=== PATIENT | female | born 1950 | race Hispanic/Latino ===

== ENCOUNTER 2018-06-03 08:52 | Emergency (ER) | payer MEDICARE, OTHER ==
[2018-06-03 09:00] VITALS: BMI 28.3
--- NOTE | 2018-06-03 10:03 | RAD ---
Date of service: 06/03/2018 PROCEDURE: Right Foot Radiographs. HISTORY: injury, focus great toe and metatarsal COMPARISON: None. FINDINGS: BONES: No acute fracture or destructive bony lesion identified. JOINTS: Significant joint space narrowing seen at the 1st metatarsophalangeal joint with articular cortical sclerosis and limited osteophyte development compatible degenerative joint disease. Lesser similar changes are present at the 2nd through 5th interphalangeal joints diffusely. Limited degenerative pattern is also seen at the mid and hindfoot articulations diffusely. SOFT TISSUES: Normal. OTHER FINDINGS: None. IMPRESSION: No acute fracture, subluxation or dislocation identified. Degenerative joint changes are seen as discussed above but seen worst at the 1st metatarsophalangeal joint. No destructive bony lesion appreciable.
--- NOTE | 2018-06-03 10:32 | ED PDOC ---
Arrival/HPI - General Chief Complaint: Lower Extremity Problem/Injury Time Seen by Provider: 06/03/18 09:17 Historian: Patient - History of Present Illness Narrative History of Present Illness (Text): 06/03/18 09:10 68 F with no significant PMHx, who presents with cc of right foot pain and swelling status post falling yesterday morning down about 1-2 stairs. Patient reports she was going down the stairs to throw out the garbage when she hurt her foot, notes she thinks her foot went under her but is not sure. Patient states she did not think it was that bad, so she went to work yesterday but sx worsened throughout the day, took cab home from work. Patient said she noticed her foot was swelling and discolored, so she iced the foot yesterday, and took extra strength Tylenol at 07:00 this morning. Patient denies any other complaints. PMD: Dr. Vidal Time/Duration: 24 hours (yesterday morning ) Symptom Onset: Sudden Symptom Course: Unchanged Context: Walking (Patient notes she was walking down stairs at home, fell on either last 1-2 stairs) Past Medical History - Provider Review Nursing Documentation Reviewed: Yes - Infectious Disease Hx of Infectious Diseases: None - Reproductive Menopause: Yes Family/Social History - Physician Review Nursing Documentation Reviewed: Yes Family/Social History: No Known Family HX Allergies/Home Meds Allergies/Adverse Reactions: Allergies No Known Allergies Allergy (Verified 06/03/18 09:05) Review of Systems - Physician Review All systems were reviewed & negative as marked: Yes (All other systems negative except that noted in the HPI.) Physical Exam - Physical Exam Narrative Physical Exam (Text): PE: Gen: VS reviewed, alert, well developed, well nourished, nontoxic, mild distress Eye: EOMI, PERRL Neck: no JVD, supple, no adenopathy CV: regular rate, regular rhythm, no rubs,no murmur, S1, S2 Pulm: no distress, clear to auscultation, no wheeze, no rhonchi, breath sounds equal, no rales Abd: soft, nontender, no guarding, no rebound, no rigidity Ext: Swelling and bruising of left foot. Bruising extends to part of medial arch. Tenderness of right first metatarsal area. Skin: good color, no rash, no cyanosis Psych: responds appropriately to questions, normal affect Neuro: oriented x3, CN2-12 intact grossly, motor intact, sensation intact Vital Signs Reviewed: Yes Vital Signs Temp Pulse Resp BP Pulse Ox 06/03/18 08:59 98 F 86 18 155/90 H 99 Temperature: Afebrile Blood Pressure: Hypertensive (at 155/90) Pulse: Regular Respiratory Rate: Normal Appearance: Positive for: Well-Appearing, Non-Toxic Pain Distress: Mild Mental Status: Positive for: Alert and Oriented X 3 Medical Decision Making ED Course and Treatment: 06/03/18 09:10 Impression: 68 F presents to the Emergency department status post falling yesterday morning down about 1-2 stairs. Differential Diagnosis included but are not limited to: Plan: --X-Ray of right foot, 3 views -- Reassess and disposition Progress Notes: 06/03/18 11:40 splint applied by podiatry resident dr. odell, checked by myself after and neurovascular intact. patient will be provided crutches and surgical shoe. - RAD Interpretation Narrative RAD Interpretations (Text): 06/03/18 X-Ray of right foot reviewed by radiologist. I disagree with the radiology report. Fracture of first distal proximal bone. Discussed case with Podiatry resident, who will come evaluate the patient. Radiology reading below: X-ray of right foot reviewed by radiologist, shows: Dictator : Keron Schreiber MD Report Date : 06/03/2018 09:59:26 FINDINGS: BONES: No acute fracture or destructive bony lesion identified. JOINTS: Significant joint space narrowing seen at the 1st metatarsophalangeal joint with articular cortical sclerosis and limited osteophyte development compatible degenerative joint disease. Lesser similar changes are present at the 2nd through 5th interphalangeal joints diffusely. Limited degenerative pattern is also seen at the mid and hindfoot articulations diffusely. SOFT TISSUES: Normal. OTHER FINDINGS: None. IMPRESSION: No acute fracture, subluxation or dislocation identified. Degenerative joint changes are seen as discussed above but seen worst at the 1st metatarsophalangeal joint. No destructive bony lesion appreciable. Radiology Orders: 06/03/18 09:17 FOOT RIGHT 3 VIEWS ROUTINE [RAD] Stat Small Parts Assembler: Radiologist - Scribe Statement The provider has reviewed the documentation as recorded by the Scribe Glenna Durham All medical record entries made by the Scribe were at my direction and personally dictated by me. I have reviewed the chart and agree that the record accurately reflects my personal performance of the history, physical exam, medical decision making, and the department course for this patient. I have also personally directed, reviewed, and agree with the discharge instructions and disposition. Disposition/Present on Arrival - Present on Arrival Any Indicators Present on Arrival: No History of DVT/PE: No History of Uncontrolled Diabetes: No Urinary Catheter: No History of Decub. Ulcer: No History Surgical Site Infection Following: None - Disposition Have Diagnosis and Disposition been Completed?: Yes Diagnosis: Fractured tarsal bone Disposition: HOME/ ROUTINE Disposition Time: 11:41 Patient Plan: Discharge Condition: STABLE Additional Instructions: FLORIN ANN, thank you for letting us take care of you today. Your provider was Dr. Iam Roy and you were treated for tarsal fracture. The emergency medical care you received today was directed at your acute symptoms. If you were prescribed any medication, please fill it and take as directed. It may take several days for your symptoms to resolve. Return to the Emergency Department if your symptoms worsen, do not improve, or if you have any other problems. Please contact your doctor or call one of the physicians/clinics you have been referred to that are listed on the Patient Visit Information form that is included in your discharge packet. Bring any paperwork you were given at discharge with you along with any medications you are taking to your follow up visit. Our treatment cannot replace ongoing medical care by a primary care provider outside of the emergency department. Thank you for allowing the [facility] team to be part of your care today. If you had an X-Ray or CT scan: A Radiologist will review the ED reading if any change in treatment is needed we will contact you. If you had a blood, urine, or wound culture: It will take several days for the results, if any change in treatment is needed we will contact you. If you had an STI test: It will take 48 hours for the results. Please call after 1 week if you have not heard back. Prescriptions: Ibuprofen [Motrin Tab] 600 mg PO QID #42 tab Referrals: Sharon Calvert DPM [Staff Provider] - Follow up with primary Forms: [employer] (Latvian), WORK NOTE
--- NOTE | 2018-06-03 11:09 | CP.PCM.CON ---
History of Present Illness - History of Present Illness History of Present Illness: Podiatry consult note for Dr. Calvert, 68 yo female seen in the ED with pmhx of hypothyroidism for pain and swelling to the right foot. Patient states she was going down the stairs yesterday and fell down two stairs. Patient states she continued with her daily activities, because the pain was not so bad. Patient states the pain had gotten worse throughout the day and swelling and black/blue increased. Patient states she has been icing and elevating her lower extremity. Is taking extra strength tylenol regularly. Denies any other complains/pedal complains/f/n/v/sob. Pshx: none Allergies: NKFDA Social history: denies smoking or drinking alcohol. Past Patient History - Infectious Disease Hx of Infectious Diseases: None Meds Allergies/Adverse Reactions: Allergies Allergy/AdvReac Type Severity Reaction Status Date / Time No Known Allergies Allergy Verified 06/03/18 09:05 Physical Exam - Constitutional Appears: Well, Non-toxic, No Acute Distress - Head Exam Head Exam: ATRAUMATIC, NORMOCEPHALIC - Extremities Exam Additional comments: Right lower extremity exam: Vascular: DP/PT pulses are palpable 2/4, CFT <3 secs x5, TG warm to warm ( warmer around the first ray), edema, erythema and ecchymosis noted at themedial aspect of the forefoot and midfoot Derm: no open lesions, ecchymosis,edema and erythema noted on the dorsal and plantar aspect of the forefoot and midfoot, no clinical signs of infection neuro: protective sensation grossly intact via ipswich 4/4 ortho: pain on palpation to the medial cuneiform and first ray, pain on palpation with ROM of the feet joint, pain upon palpation after stressing the lisfranc ligament. - Neurological Exam Neurological exam: Alert, Oriented x3 - Psychiatric Exam Psychiatric exam: Normal Affect Results - Vital Signs Recent Vital Signs: Last Vital Signs Temp 98 F 06/03/18 08:59 Pulse 86 06/03/18 08:59 Resp 18 06/03/18 08:59 BP 155/90 H 06/03/18 08:59 Pulse Ox 99 06/03/18 08:59 Assessment & Plan - Assessment and Plan (Free Text) Assessment: 68 yo female seen and evaluated at bedside in the ED for pain and swelling to the right foot; possible medial cuneiform fracture Plan: Patient seen and evaluated Chart and vitals reviweed; afebrile History and plan discussed in detail with the attending, Dr Calvert Patient educated on the conservative treatment of the fracture Patient educated on the RICE protocol Right foot dressed with stinson compression Surgical shoe dispensed patient to [facility] Patient will follow up with Dr. Calvert in her office Thank you for the consult.
[2018-06-03 12:09] VITALS: BP 164/94; PULSE 68; RESP 20; TEMP 97.6; O2SAT 98
== END 2018-06-03 12:10 | disposition home or self-care (01) ==
LOC: ED 08:52
DX: S92.201A Fracture of unspecified tarsal bone(s) of right foot, initial encounter for closed fracture (principal); W10.9XXA Fall (on) (from) unspecified stairs and steps, initial encounter; Y92.9 Unspecified place or not applicable